=== PATIENT | female | born 2000 | race African-American/Black ===

== ENCOUNTER → 2024-03-07 | Day surgery (SDC) | payer OTHER ==
[2024-03-05 14:34] LABS: BASOPHILS % 0.8 % (0.0-1.0); EOSINOPHILS # (AUTO) 0.1 (0.0-0.4); EOSINOPHILS % 2.4 % (0.0-6.0); HEMATOCRIT 35.5 % (34.2-44.1); HEMOGLOBIN 11.1 g/dL (12.0-16.0); LYMPHOCYTES # (AUTO) 1.3 (1.0-3.2); MEAN CORPUSCULAR HGB CONC 31.3 g/dL (31-35); MEAN CORPUSCULAR VOLUME 70.4 fL (81-99); MONOCYTES # (AUTO) 0.3 (0.2-0.8); MONOCYTES % 8.9 % (4.4-11.3); NEUTROPHILS # (AUTO) 1.9 (2.1-6.9); NEUTROPHILS % 51.6 % (38.7-80.0); PLATELET COUNT 432 x10e3/uL (140-360); RED BLOOD COUNT 5.04 x10e6/uL (3.6-5.1); RED CELL DISTRIBUTION WIDTH 15.1 % (11.7-14.4); WHITE BLOOD COUNT 3.69 x10e3/uL (4.8-10.8)
[~2024-03-07] MED LIST: ACETAMINOPHEN 1000 MG/100 ML IV ONE; BUPIVACAINE 0.5%/EPI 30 ML SDV INJ ONE; DEXAMETHASONE SOD PHOS INJ 4 MG/ML SDV ONE; FENTANYL CITRATE/PF 100MCG/2 ML INJ ONE; HYDROCODON-ACE1 EA12 PO; LIDOCAINE HCL 2% LOCAL INJ 5 ML SDV VIAL INJ ONE; MIDAZOLAM HCL 2 MG/2 ML VIAL ONE; MINERAL OIL STERILE 10ML VIAL ONE; MUPIROCIN 2% OINT 22 GM TUBE ONE; ONDANSETRON HCL INJ 2MG/ML 2ML 2 MG/ML VIAL ONE; PHENYLEPHRINE HCL 1% 10 MG/ML VIAL ONE; PROPOFOL IV EMULSION 10 MG/ML 20 ML VIAL ONE; SEVOFLURANE INHAL SOLN 250 ML PEN BTL ONE
[2024-03-07] MEDS: CEFAZOLIN SODIUM 2 GM ONE (06:14)
[2024-03-07] MEDS: LACTATED RINGER'S 1,000 ML ONE (06:20)
[2024-03-07] MEDS: HYDROMORPHONE 1MG/1ML INJ ONE ×2 (09:54→10:25)
[2024-03-07] MEDS: HYDROCODONE/APAP 7.5MG-325MG 1 EA TAB ONE (11:00)
[2024-03-07 11:20] VITALS: BP 150/89; PULSE 56; RESP 17; O2SAT 99
== END | disposition home or self-care (01) ==
LOC: OR 05:34
PROVIDERS: ATTEND Plastic Surgery
DX: L73.2 Hidradenitis suppurativa (principal); L72.0 Epidermal cyst; E66.01 Morbid (severe) obesity due to excess calories; F41.9 Anxiety disorder, unspecified; Z01.812 Encounter for preprocedural laboratory examination
CPT/HCPCS: 11451; 15100; 15101 ×2; 36415; 84702; 85025; 88304; J0131; J1100; J1170; J2001; J2250; J2371; J2405; J2704; J3010; J7121

== ENCOUNTER → 2024-03-11 | Outpatient (REF) | payer OTHER ==
[~2024-03-11] MED LIST changes: -ACETAMINOPHEN 1000 MG/100 ML IV ONE; -BUPIVACAINE 0.5%/EPI 30 ML SDV INJ ONE; -DEXAMETHASONE SOD PHOS INJ 4 MG/ML SDV ONE; -FENTANYL CITRATE/PF 100MCG/2 ML INJ ONE; -LIDOCAINE HCL 2% LOCAL INJ 5 ML SDV VIAL INJ ONE; -MIDAZOLAM HCL 2 MG/2 ML VIAL ONE; -MINERAL OIL STERILE 10ML VIAL ONE; -MUPIROCIN 2% OINT 22 GM TUBE ONE; -ONDANSETRON HCL INJ 2MG/ML 2ML 2 MG/ML VIAL ONE; -PHENYLEPHRINE HCL 1% 10 MG/ML VIAL ONE; -PROPOFOL IV EMULSION 10 MG/ML 20 ML VIAL ONE; -SEVOFLURANE INHAL SOLN 250 ML PEN BTL ONE
== END ==
LOC: WCC 09:11
PROVIDERS: ATTEND Plastic Surgery
DX: S71.102D Unspecified open wound, left thigh, subsequent encounter (principal); S71.101D Unspecified open wound, right thigh, subsequent encounter; S41.001D Unspecified open wound of right shoulder, subsequent encounter; S41.002D Unspecified open wound of left shoulder, subsequent encounter

== ENCOUNTER → 2024-03-14 | Outpatient (REF) | payer OTHER ==
[~2024-03-14] MED LIST changes: +LIDOCAINE VISC 2% SOLN 15 ML UDC ONE; +MUPIROCIN 2% OINT 22 GM TUBE ONE
== END ==
LOC: WCC 13:00
PROVIDERS: ATTEND Plastic Surgery
DX: S71.102D Unspecified open wound, left thigh, subsequent encounter (principal); S71.101D Unspecified open wound, right thigh, subsequent encounter; S41.001D Unspecified open wound of right shoulder, subsequent encounter; S41.002D Unspecified open wound of left shoulder, subsequent encounter